=== PATIENT | male | born 1950 | race Caucasian/White ===

== ENCOUNTER 2021-03-17 12:15 | Emergency (ER) | payer MEDICARE, OTHER, SELFPAY ==
[2021-03-17 12:29] VITALS: BP 191/109; PULSE 63; RESP 18; TEMP 36.9; O2SAT 99; BMI 28.8
--- NOTE | 2021-03-17 12:36 | ED.LOWEXIN ---
HPI - Extremity Injury (Lower) General Chief Complaint: Extremity Injury, Lower Stated Complaint: Left Foot Pain, Fall Time Seen by Provider: 03/17/21 12:30 Source: patient Mode of arrival: Ambulatory History of Present Illness HPI Narrative: 70-year-old gentleman with a history of coronary artery disease post stent placement, hypertension hyperlipidemia who slipped and fell while playing golf this afternoon with mild inversion injury to the left ankle and a twisting injury to the lateral aspect of his distal foot and toes. He was able to walk on it but comes in for further evaluation. He felt a ?pop?. Review of Systems Review of Systems Narrative: Pertinent positive and negative findings as per HPI Remainder of review of systems is otherwise unremarkable for Constitutional: Fevers, chills, weakness ENT: No sore throat, neck pain, CV: Chest pain, palpitations, Respiratory: Cough, wheeze, dyspnea GI: Nausea, vomiting, diarrhea, : Dysuria, hematuria, Patient History Medical History (Updated 03/17/21 @ 13:03 by Holley Timmons MD) Coronary artery disease Surgical History (Updated 03/17/21 @ 12:51 by Holley Timmons MD) H/O Achilles tendon repair Social History Smoking Status: Never smoker Smoking Status: Never smoker Substance Use Type: does not use Exam Narrative Exam Narrative: General: Alert appropriate in no acute distress Respiratory: Able to speak in full sentences, no obvious respiratory distress Skin: No obvious rashes, warm and dry Neurologic: Grossly intact no obvious asymmetries or abnormalities Psych: appropriate insight and affect, cooperative Extremity: No tenderness on either malleoli, no swelling, no ecchymosis. Some minor tenderness along the lateral aspect of his foot and ankle to palpation. Minor bruising over the distal dorsum of the foot with tenderness of the metatarsal joints of the 3rd 4th and 5th toes. No bony tenderness. Initial Vital Signs Initial Vital Signs: Vital Signs Temperature 98.5 F 03/17/21 12:29 Pulse Rate 63 03/17/21 12:29 Respiratory Rate 18 03/17/21 12:29 Blood Pressure 191/109 H 03/17/21 12:29 Pulse Oximetry 99 03/17/21 12:29 Course Vital Signs Vital signs: Vital Signs - 8 hr 03/17/21 12:29 Temperature 98.5 F Pulse Rate 63 Respiratory Rate 18 Blood Pressure 191/109 H Pulse Oximetry 99 MDM - Extremity Injury (Lower) MDM Narrative Medical decision making narrative: 70-year-old gentleman who slipped and fell while playing golf this afternoon mild inversion injury to the left distal lateral foot to the lateral 3 toes. He was able to walk on it but comes in for further evaluation. He felt a ?pop?. He has full relatively pain-free range of motion in the distal foot, there is no point tenderness in any of the bony prominences and he is able to walk. There is some minor ecchymosis developing over the dorsum of the foot. Imaging is not indicated at this time. Reviewed with him anticipated course of resolution, recommended a hard sole shoe and ibuprofen, ice and elevation as tolerated. He is safe for home discharge Discharge Plan Departure Patient Disposition: Home Clinical Impression: Foot sprain Instructions: DI for Foot Pain Activity Restrictions/Additional Instructions: Thank you for coming in today Based on your exam, the probability of a broken bone is very low and x-rays are not indicated. With the bruising over the foot and toes, I suspect that you are right in that you sprained the foot and the last 3 toes on the left side. Ice and elevation will be helpful and using 400 mg of ibuprofen (2 exmc-unh-vdokuxp pills) and 1 Tylenol every 6 hours can be very helpful in controlling pain. Wearing a hard sole shoe can also be helpful in decreasing mobility and decreasing pain in your foot. If you find that things are worse, please feel free to follow-up with your primary care provider or return to the emergency department. Please do keep track of your blood pressures at home and if they are consistently elevated being back on blood pressure medication can significantly reduce your risk of additional heart problems or recurrent heart attacks
--- NOTE | 2021-03-17 13:14 | PC.NURSE ---
slight bruising noted.
== END 2021-03-17 13:15 | disposition home or self-care (01) ==
PROVIDERS: Emergency Provider Emergency Medicine
DX: S93.602A Unspecified sprain of left foot, initial encounter (principal); W01.0XXA Fall on same level from slipping, tripping and stumbling without subsequent striking against object, initial encounter; Y93.53 Activity, golf
CPT/HCPCS: 99281

== ENCOUNTER → 2021-08-09 09:50 | Outpatient (CLI) | payer MEDICARE, OTHER, SELFPAY ==
--- NOTE | 2021-08-09 | DI.NM.S_ITS ---
PROCEDURE: NM LALO PERF SPECT REST & STR Rest and exercise myocardial perfusion SPECT with gated imaging and ejection fraction RADIOPHARMACEUTICAL: 12.1 mCi Tc-99m sestamibi IV at rest and 26.0 mCi Tc-99m sestamibi IV at peak exercise. A one day-protocol was performed. INDICATIONS: Old myocardial infarction TECHNIQUE: Radiopharmaceutical was injected at peak stress test, and also at rest. SPECT images were obtained. SPECT myocardial perfusion images were displayed in short axis, horizontal long axis, and vertical long axis views. Gated images were reviewed using Lumora software. COMPARISON: None. CARDIAC STRESS: A standard Luis Fernando treadmill exercise tolerance test was performed by the patient under the supervision of an attending staff. The patient exercised for 7 minutes and 50 seconds; functional aerobic impairment (ALLISON) is -9%. Hemodynamic data: There is normal blood pressure and heart rate response to exercise stress. Patient achieved 93% of maximum predicted heart rate at peak exercise. Symptoms: Patient denied chest pain during exercise. EKG: No diagnostic EKG changes of ischemia; rare PVCs. FINDINGS: Raw data: There is good myocardial labeling by radiotracer. No significant motion artifacts. Tawh-yi-yixbm ratio is 0.3 (normal is less than 0.38 for sestamibi tracer, and less than 0.50 for thallium tracer). Left ventricle function: Gated images demonstrate normal left ventricle wall thickening. No segmental wall motion abnormality. No transient ischemic dilation; TID is 0.92 (normal less than 1.3). The left ventricle resting end-diastolic volume is 102 mL. Left ventricle stress ejection fraction is 66%; normal values are above 45%. Myocardial perfusion: There is a fixed inferior wall defect that resolves with prone imaging, suggesting diaphragmatic attenuation artifact. No ischemia. No infarction. IMPRESSION: Low risk, normal treadmill nuclear stress test 1) No perfusion evidence of ischemia or infarction. 2) Normal left ventricular size, wall motion, and systolic function (EF post stress 66%). 3) No ST changes with exercise. 4) No angina during the study. 5) Above average exercise tolerance (8.6METs, ALLISON -9%). Target heart rate achieved. Appropriate BP response to exercise. 6) No prior nuclear stress test available for comparison. Dictated by: Melanie Cedeño MD on 08/09/2021 at 16:31 Approved by: Melanie Cedeño MD on 08/09/2021 at 16:34
[2021-08-09 10:48] LABS: COVID19 -Nasal RAPID Negative (Negative)
--- NOTE | 2021-08-09 15:31 | PM.TREADMILL ---
Cardiac Stress Test Report Referral & Results Date Patient Seen: 08/09/21 Time Patient Seen: 15:31 Requesting provider: Abigail Graves Indication: old myocardial infarction Rest ECG: sinus rhytm Procedure Note: Standard lucero protocol,, 7:50 minutes, 8.6 METS Good exercise capacity, ALLISON -9% Normal hemodynamic response to exercise No chest pain or anginal symptoms No significant ST changes with peak exercise Rare ectopy Impression: Normal exercise stress test Please note: Actual ECG tracings can be found in the PACS system.
== END ==
PROVIDERS: Referring Provider Nurse Practitioner Family; Visit Provider Nurse Practitioner Family
DX: I25.2 Old myocardial infarction (principal); Z20.822 Contact with and (suspected) exposure to COVID-19
CPT/HCPCS: 78452; 87635; 93017; A9502

== ENCOUNTER → 2023-09-22 12:27 | Outpatient (CLI) | payer MEDICARE, OTHER, SELFPAY ==
--- NOTE | 2023-09-22 12:29 | DI.MRI.S_ITS ---
PROCEDURE: MR SHOULDER RT WO CON INDICATIONS: PAIN IN RT SHOULDER TECHNIQUE: Noncontrast oblique coronal T2 fast spin echo with fat saturation, oblique sagittal T1 spin echo and T2 fast spin echo with fat saturation, axial T1 spin echo and T2 fast spin echo with fat saturation through the shoulder. COMPARISON: None. FINDINGS: Image quality: Excellent. Bones: Insertional cysts are present at the posterior lateral humeral head (6/9). Otherwise, the marrow signal is slightly heterogenous (8/13). There is no acute fracture or dislocation. Acromioclavicular joint: There is mild osteoarthritis. There is a type 1 acromion. Glenohumeral joint: There is moderate osteoarthritis with a small-moderate joint effusion. Small intra-articular bodies are present at the axillary pouch (8/15-16). Labrum: There is circumferential blunting and fraying of the labrum. Cartilage: There is mild thinning of the glenohumeral cartilage at the inferior aspect of the joint. Subacromial-subdeltoid bursa: A small amount of fluid is present in the subacromial-subdeltoid bursa. Rotator cuff: There is a partial width, partial-thickness, articular sided tear of the supraspinatus at the myotendinous junction with additional delaminating tears (8/7; 10/11). There is moderate supraspinatus tendinosis. There is mild infraspinatus tendinosis. There is a partial width, partial-thickness, articular sided tear of the cranial fibers of the subscapularis, superimposed on moderate tendinosis (10/11). The teres minor tendon is intact. Long head of the biceps tendon: The long head of the biceps tendon is present within the bicipital groove and intact. Musculature: Overall muscle bulk is preserved. Inferior glenohumeral ligament/axillary pouch: The axillary pouch is normal in thickness and signal Coracoclavicular and coracoacromial ligaments: The cortical clavicular and cortical acromial ligament are preserved. IMPRESSION: 1. Partial width, partial-thickness and delaminating tears of the supraspinatus at the myotendinous junction, superimposed on moderate tendinosis. 2. Partial width, partial-thickness tears of the cranial subscapularis fibers, superimposed on moderate tendinosis. 3. Mild infraspinatus tendinosis. 4. Moderate glenohumeral osteoarthritis with a small-moderate joint effusion and synovitis. 5. Mild acromioclavicular osteoarthritis. 6. Heterogenous bone marrow, a nonspecific finding which can be seen in the setting of obesity, anemia, smoking, among other etiologies. Dictated by: Kendrick Page M.D. on 09/22/2023 at 16:32 Approved by: Kendrick Page M.D. on 09/22/2023 at 16:45
== END ==
LOC: MRI 12:28
PROVIDERS: Referring Provider Nurse Practitioner Family; Visit Provider Nurse Practitioner Family
DX: M19.011 Primary osteoarthritis, right shoulder (principal); M25.411 Effusion, right shoulder; M65.811 Other synovitis and tenosynovitis, right shoulder; M25.511 Pain in right shoulder
CPT/HCPCS: 73221

== ENCOUNTER → 2023-10-01 07:59 | Outpatient (CLI) | payer MEDICARE, OTHER, SELFPAY ==
--- NOTE | 2023-10-01 | DI.US.S_ITS ---
PROCEDURE: US ABDOMEN LIMITED INDICATIONS: ABDOMINAL DISTENSION EVAL FOR UMBILICAL HERNIA TECHNIQUE: Real-time scanning was performed of the umbilicus for hernia, with image documentation. COMPARISON: None. FINDINGS: Partially reducible small fat containing umbilical hernia. IMPRESSION: Partially reducible small fat containing umbilical hernia. Dictated by: Aleksey Haney M.D. on 10/01/2023 at 10:50 Approved by: Aleksey Haney M.D. on 10/01/2023 at 10:51
--- NOTE | 2023-10-01 | DI.MRI.S_ITS ---
PROCEDURE: MR HAND LT WO CON INDICATIONS: Left MCP JOINT EDEMA POST GOLF INJURY TECHNIQUE: Noncontrast coronal T1 spin echo and T2 fast spin echo with fat saturation, axial proton density fast spin echo and T2 fast spin echo with fat saturation, sagittal T1 spin echo and STIR through the left thumb. COMPARISON: None. FINDINGS: Image quality: Excellent. Bones: There is mild ulnar subluxation of the 1st proximal phalanx at the 1st metacarpophalangeal joint. There is mild marrow edema of the volar aspect of the 1st metacarpal head, likely representing mild marrow contusion. Additional mild subchondral cystic changes at the 1st metacarpal head, favoring degenerative. Cystic changes in the scaphoid, nonspecific and may be degenerative. Mild degenerative change of the 1st carpal metacarpal joint. Interphalangeal joint(s): The accessory and proper collateral ligaments appear intact. The volar plate demonstrates normal morphology. The extensor central slips appear intact on sagittal images. Metacarpophalangeal joint(s): The ulnar collateral ligament at the 1st metacarpophalangeal joint is intact. There is mild thinning of the radial collateral ligament at the 1st metacarpal head insertion, likely representing low-grade tear. No full-thickness tear of the radial collateral ligament. Extensor apparatus: The central slips insert normally on the middle phalangeal base. The conjoint and terminal tendons insert normally on the distal phalangeal bases. More proximal portions of the extensor tendons also appear normal. Flexor apparatus: The flexor digitorum superficialis and profundus tendons both appear intact. All annular and cruciform pulleys appear intact, without adjacent soft tissue edema. Soft tissues: Mild subcutaneous edema about the thumb. No drainable fluid collection. There is mild muscle edema of the opponents pollicis, likely representing mild muscle strain. IMPRESSION: 1. Mild ulnar subluxation of the 1st proximal phalanx at the 1st metacarpal phalangeal joint, with mild marrow contusion of the volar aspect of the 1st metacarpal head. Low-grade tear of the radial collateral ligament at the 1st metacarpal head. 2. Mild muscle strain of the opponents pollicis. 3. Additional mild degenerative changes as described above. Dictated by: Zuleyma Frank M.D. on 10/01/2023 at 16:48 Approved by: Zuleyma Frank M.D. on 10/01/2023 at 16:59
== END ==
PROVIDERS: PCP Nurse Practitioner Family; Referring Provider Nurse Practitioner Family; Visit Provider Nurse Practitioner Family
DX: S63.112A Subluxation of metacarpophalangeal joint of left thumb, initial encounter (principal); S60.012A Contusion of left thumb without damage to nail, initial encounter; S63.642A Sprain of metacarpophalangeal joint of left thumb, initial encounter; M79.645 Pain in left finger(s); K42.0 Umbilical hernia with obstruction, without gangrene; R14.0 Abdominal distension (gaseous)
CPT/HCPCS: 73218; 76705

== ENCOUNTER 2023-12-02 09:45 | Day surgery (SDC) | payer MEDICARE, OTHER, SELFPAY ==
--- NOTE | 2023-12-02 | PATH_ITS ---
[facility] Accession Number: [id number] No. of containers..02 Tissue . 01 Material submitted: . PART A: colon - POLYP 70 PART B: rectum - RECTUM . 01 Diagnosis: A. Colon, polyp at 70 cm, biopsy: Tubular adenoma -- B. Colon, rectal polyp, biopsy: Tubular adenoma(s) -- As part of our intradepartmental review, Dr. Bowie reviewed part B and agreed with the above diagnosis. TXN 12/04/2023 1519 Local . 01 Electronically signed: . Carmelo Briceño MD, Pathologist NPI- [id number] . 01 Gross description: . A. Received in formalin with two patient identifiers and 70 polyp, is a single lee soft tissue fragment, 0.3 in greatest dimension, submitted in A1. B. Received in formalin with two patient identifiers and rectum, are four lee soft tissue fragments, 0.2 to 0.7 cm in greatest dimension, submitted entirely in B1. ([id number]) /MRV 12/03/2023 1844 Local . 01 Pathologist provided ICD-10: D12.6 . 01 CPT . 152598, 809867 Specimen Comment: A courtesy copy of this report has been sent to [phone] Performed at: [address] [address], [place], [place] [id number] MD Nicanor Bowie MD Phone: [phone]
--- NOTE | 2023-12-02 10:14 | PM.PREOP ---
Pre-operative Note Interval Note History & Physical reviewed/Exam performed by Physician: Yes Changes to H&P: No ASA Class (for procedural sedation): II
--- NOTE | 2023-12-02 10:15 | PM.OP.COLON ---
Operative Date/Time/Diagnoses Date of procedure: 12/02/23 Pre-op diagnosis: See indication and findings Procedure & Clinicians Study performed: Colonoscopy Indications: Screening at a 10 year interval Surgeon: Caridad Aguirre Procedure Notes Procedure in detail: After informed consent was obtained the patient was placed in left lateral decubitus position. The video colonoscope was introduced the rectum slowly advanced cecum. Preparation was good. On slow withdrawal mucosa was carefully examined. The scope was removed. Patient tolerated procedure well. Blood loss none Complications none Sedation mac Findings 1. 6 mm polyp at 70 cm. Jumbo biopsy removed completely. 2. 14 mm semi pedunculated polyp in the rectum on snared removed completely 3. Otherwise negative colonoscopy to cecum Will follow up on pathology results which will dictate recall interval. This will probably be in 3 to possibly 5 years
[2023-12-02 10:24] VITALS: BP 158/93; PULSE 65; RESP 17; TEMP 36.6; O2SAT 96
[2023-12-02] MEDS: LACTATED RINGERS 1,000 ML 42 ML IV (10:30)
[2023-12-02 11:03] VITALS: BP 111/79; PULSE 60; RESP 9; TEMP 36.3; O2SAT 94
[2023-12-02 11:09] VITALS: BP 121/79; PULSE 53; RESP 8; O2SAT 96
[2023-12-02 11:12] VITALS: BP 102/77; PULSE 62; RESP 11; TEMP 37.1; O2SAT 93
[2023-12-02 11:15] VITALS: BP 111/77; PULSE 64; RESP 14; TEMP 36.3; O2SAT 95
== END 2023-12-02 11:32 | disposition home or self-care (01) ==
PROVIDERS: PCP Nurse Practitioner Family; Referring Provider Internal Medicine Gastroenterology; Visit Provider Internal Medicine Gastroenterology
PROC: 0DJD8ZZ Inspection of Lower Intestinal Tract, Via Natural or Artificial Opening Endoscopic (ICD-10-PCS; CPT 45378; principal; 2023-12-02 11:00)
DX: Z12.11 Encounter for screening for malignant neoplasm of colon (principal); D12.6 Benign neoplasm of colon, unspecified; D12.8 Benign neoplasm of rectum
CPT/HCPCS: 45385; 45380; J2704

== ENCOUNTER 2024-02-22 09:04 | Day surgery (SDC) | payer MEDICARE, OTHER, SELFPAY ==
--- NOTE | 2024-02-22 | PATH_ITS ---
[facility] Accession Number: [id number] No. of containers..02 Tissue . 01 Material submitted: . PART A: duodenum - DUODENUM PART B: stomach - ANTRUM . 01 Diagnosis: A. DUODENUM, BIOPSY: Duodenal mucosa with no diagnostic abnormality. Negative for active inflammation, features of sprue, dysplasia, or malignancy. . B. GASTRIC ANTRUM, BIOPSY: Gastric antral mucosa with no diagnostic abnormality. No evidence of Helicobacter organisms on H/E stain. Negative for intestinal metaplasia. Negative for dysplasia or malignancy. [facility] 02/26/2024 1144 Local . 01 Electronically signed: . Elton Romero MD, PhD, Pathologist NPI- [id number] . 01 Gross description: . A. Received in formalin with two patient identifiers and duodenum, are two lee soft tissue fragments 0.4 to 0.6 cm in greatest dimension. Submitted in cassette A1. B. Received in formalin with two patient identifiers and antrum, are two lee soft tissue fragments 0.3 to 0.4 cm in greatest dimension. Submitted in cassette B1. ([id number]) /AMADNO 02/25/2024 1024 Local . 01 Pathologist provided ICD-10: R10.13, R11.12 . 01 CPT . 674765, 966136 Specimen Comment: A courtesy copy of this report has been sent to [phone] Performed at: [address] [id number] MD Nicanor Bowie MD Phone: [phone]
[2024-02-22 09:52] VITALS: BP 173/97; PULSE 53; RESP 16; TEMP 36.2; O2SAT 97
--- NOTE | 2024-02-22 10:25 | PM.HP.1 ---
History of Present Illness History of Present Illness Date Patient Seen: 02/22/24 Time Patient Seen: 10:25 Chief complaint: SDC Narrative: 73 yo male here for EGD. I reviewed the recent note by Luis Mills. No changes. Having 2 yrs of intermittent dyspepsia and nausea. No weight loss. [facility] Medical History Coronary artery disease Surgical History H/O Achilles tendon repair Social History Smoking Status: Never smoker alcohol intake: never Meds Home Medications and Allergies Home Medications Medication Instructions Recorded Confirmed Type aspirin 81 mg tablet,delayed 81 mg PO DAILY 12/02/23 02/22/24 History release calcium carbonate (Tums) 200 mg PO QID PRN Acid Reflux 12/02/23 12/02/23 History cholecalciferol (vitamin D3) 25 25 mcg PO DAILY 12/02/23 12/02/23 History mcg (1,000 unit) tablet lisinopril 10 mg tablet 10 mg PO DAILY 12/02/23 12/02/23 History meloxicam 15 mg tablet 15 mg PO DAILY 12/02/23 12/02/23 History metoprolol succinate 25 mg 25 mg PO DAILY 12/02/23 02/22/24 History tablet,extended release 24 hr rosuvastatin 20 mg tablet 20 mg PO ONCE PM 12/02/23 02/22/24 History Allergies Allergy/AdvReac Type Severity Reaction Status Date / Time No Known Drug Allergies Allergy Verified 02/22/24 09:48 Review of Systems Review of Systems ROS: Yes All systems reviewed with the patient and are negative except as otherwise documented Exam Vital Signs (past 8 hours): - 02/22/24 09:52 Temperature 97.1 F L Pulse Rate 53 L Respiratory Rate 16 Blood Pressure 173/97 H Pulse Oximetry 97 Oxygen Delivery Method Room Air Oxygen Delivery Method Room Air Const General: cooperative HENMT Head: normal to inspection Eyes General: appearance normal, both eyes and all related structures Neck Neck: normal visual inspection Chest Chest: normal inspection of the chest Resp Effort & Inspection: normal respiratory effort Cardio Rate: regular rate GI Inspection: normal to inspection Skin General: no rashes or lesions noted Neuro General: patient alert and patient awake Extrem General: normal to inspection and no pedal edema Psych Appearance: grossly normal Assessment & Plan Assessment & Plan narrative: 73-year-old male with a history of dyspepsia, bloating, and nausea/vomiting. Diagnostic EGD is pursued today. Time-Based Coding :: [TOTAL MINUTES] spent with patient and on the chart (including review of chart, obtaining history, exam, reviewing outside data, placing orders, documenting exam and treatment plan, and counseling patient) on [DATE].
--- NOTE | 2024-02-22 10:28 | PM.PREOP ---
Pre-operative Note Interval Note History & Physical reviewed/Exam performed by Physician: Yes Changes to H&P: No ASA Class (for procedural sedation): II
--- NOTE | 2024-02-22 11:34 | PM.OP.EGD ---
Operative Date/Time/Diagnoses Date of procedure: 02/22/24 Time of procedure: 11:34 Pre-op diagnosis: Dyspepsia, bloating, nausea, vomiting Post-op diagnosis: same Procedure & Clinicians Study performed: EGD with biopsies Same procedure as scheduled: Yes Indications: Dyspepsia, bloating, nausea, vomiting Surgeon: Toribio Taveras Procedure Notes SCOAP/Timeout: Done Procedure in detail: After the risks and benefits were explained, written and verbal informed consent was obtained. The patient was brought into the procedure room and placed into the left lateral decubitus position. Please see anesthesia notes for sedation details. The scope was introduced into the mouth through the bite block and advanced under direct visualization to the 2nd portion of the duodenum. The scope was slowly withdrawn carefully examining the mucosa for any defects or lesions. Retroflexed views were accomplished in the stomach. The stomach was decompressed, the scope was then removed from the patient who tolerated the procedure well. Sedation minutes: 11 Complications: none Impression: 1. Duodenal: This was visually normal from the bulb through the 2nd portion. No ulcers no mass lesions. Random D2 biopsies were taken for exclusion of sprue. 2. Stomach: No ulcers. No mass lesions. No outlet obstruction. Mild gastropathy was appreciated and biopsies were taken from the antrum for exclusion of H pylori or other pathology. Retroflexed views of the LES disclosed a Hill valve grade 4 hiatal hernia. No Cornell's erosions or ulcers identified. No evidence of varices. 3. Esophagus: The squamocolumnar junction correlated with the top of the gastric folds. The GE junction was at between 38 and 39 cm. The diaphragmatic pinchcock was at approximately 41 cm from the incisors. No acute erosive changes. No suggestion of Barretts. Interestingly in the distal and midesophagus there was evidence of grade 1 varices without stigmata. Endoscopic diagnosis 1. Grade 1 esophageal varices 2. Moderate hiatal hernia 3. Mild gastropathy Post-procedure Plan for aftercare: 1. Await histology 2. Consider a standard anti-reflux protocol with the likes of daily omeprazole 3. Proceed with updated abdominal imaging with ultrasound to screen for sonographic evidence for cirrhosis and/or portal hypertension. 4. Follow up in GI clinic. Disposition: PACU
[2024-02-22 11:39] VITALS: BP 145/98; PULSE 56; RESP 16; TEMP 37; O2SAT 94
[2024-02-22 11:44] VITALS: BP 140/93; PULSE 50; RESP 12; TEMP 37; O2SAT 94
[2024-02-22 11:51] VITALS: BP 135/97; PULSE 51; RESP 15; TEMP 36.9; O2SAT 96
== END 2024-02-22 12:00 | disposition home or self-care (01) ==
PROVIDERS: PCP Nurse Practitioner Family; Referring Provider Internal Medicine Gastroenterology; Visit Provider Internal Medicine Gastroenterology
PROC: 0DJ08ZZ Inspection of Upper Intestinal Tract, Via Natural or Artificial Opening Endoscopic (ICD-10-PCS; CPT 43239; principal; 2024-02-22 10:00)
DX: R10.13 Epigastric pain (principal); R11.2 Nausea with vomiting, unspecified; R14.0 Abdominal distension (gaseous); I85.00 Esophageal varices without bleeding; K31.9 Disease of stomach and duodenum, unspecified; K44.9 Diaphragmatic hernia without obstruction or gangrene
CPT/HCPCS: 43239; J2704

== ENCOUNTER → 2024-04-05 09:47 | Outpatient (CLI) | payer MEDICARE, OTHER, SELFPAY ==
--- NOTE | 2024-04-05 09:48 | DI.US.S_ITS ---
PROCEDURE: US ABDOMEN LIMITED INDICATIONS: IDIOPATHIC ESOPHAGEAL VARICES TECHNIQUE: Real-time focused scanning was performed of the abdomen, with image documentation. COMPARISON: [facility], , US ABDOMEN LIMITED, 10/01/2023, 8:47. FINDINGS: The liver is normal in size and demonstrates no suspicious lesions. The main portal vein demonstrates normal size and demonstrates normal appearing, hepatopetal flow. The splenic vessels are within normal limits. No findings of gallstones or sludge are seen. The gallbladder wall is not thickened, measuring 3 mm or less. No specific pericholecystic fluid is seen. The sonographic Leon sign is negative. There is no biliary dilatation, the common bile duct measures 5-6 mm. The pancreas is not well seen, secondary to overlying bowel gas. IMPRESSION: Normal appearing liver. Splenic vessels within normal limits. Dictated by: Margarito Novak M.D. on 04/05/2024 at 11:14 Approved by: Margarito Novak M.D. on 04/05/2024 at 11:16
== END ==
PROVIDERS: PCP Nurse Practitioner Family; Referring Provider Physician Assistant; Visit Provider Physician Assistant
DX: I85.00 Esophageal varices without bleeding (principal)
CPT/HCPCS: 76705